=== PATIENT | female | born 1960 | race Caucasian/White ===

== ENCOUNTER 2019-12-15 05:53 | Emergency (ER) | payer OTHER ==
--- OUTSIDE RECORDS SUMMARY | 2019-12-15 06:04 | XMS REPORT | Continuity of Care Document ---
:1960 External Reference #:[id number] Author Name Mandeep Lee MD Address [address] [place] [address] Care Team Providers Name Role Phone Jose Walters MD - Care Team Information Electronics Test Engineer [phone] Otolaryngology Nathaniel Younger MD - Internal Medicine Care Team Information Electronics Test Engineer [phone] Problems Active Problems Provider Date Uncomplicated moderate persistent asthma Mandeep Lee MD Onset: Social History Type Date Description Comments Sex Unknown Tobacco Use Start: Unknown Patient has never smoked Tobacco Use Start: Unknown No Second Hand Smoke Exposure Smoking Status Reviewed: 12/05/19 No Second Hand Smoke Exposure Allergies, Adverse Reactions, Alerts Active Allergies Reaction Severity Comments Date Sulfa Drugs 12/05/2019 Medications Active Medications SIG Qnty Indications Ordering Provider Date Breo Ellipta inhale one puff 60units J45.40 Mandeep Herbert 12/05/2019 once a day MD Jesus 200-25mcg/Inh Aerosol Proair HFA 2 puffs every 4 8.500gm J45.40 Mandeep Herbert 12/05/2019 as needed MD Jesus 108(90Base) mcg/Act Aerosol [employer] REPRESENTATIVE Thyroid Unknown 120mg Tablets Epinephrine Inject as Needed Unknown For Allergic 0.3mg/0.3ML Reaction Solution Auto-Inject Immunizations Description No Information Available Vital Signs Date Vital Result Comment 12/05/2019 1:35pm BP Systolic 118 mmHg BP Diastolic 69 mmHg Height 63.5 inches 5'3.50" Weight 116.38 lb BMI (Body Mass Index) 20.3 kg/m2 Heart Rate 50 /min Respiratory Rate 18 /min Body Temperature 97.2 F O2 % BldC Oximetry 98 % Results Test Acquired Date Facility Test Result H/L Range Note .CBC Auto 12/05/2019 [facility]Other <pending> Diff [address] [facility] [place] [address] [phone] Total IgE 12/05/2019 [facility] .Total IgE <pending> [address] [place] [address] [phone] Order 12/05/2019 [facility] Inhaler <pending> Training-Patient Demonstrates Competency Order 12/05/2019 [facility] Nitric Oxide <pending> PFT Supplies <pending> PFT With Bronchodilator <pending> Procedures Date Code Description Status 12/05/2019 25042 Nitric Oxide Gas Determination Completed 12/05/2019 51581 Demonstration/Eval,Of Patient Utilization Of Completed Aerosol,Nebulizer 12/05/2019 29489 Bronchodilation Responsiveness Spirometry Pre/Post Completed Bronchodil Adm Medical Devices Description No Information Available Encounters Description No Information Available Assessments Date Code Description Provider 12/05/2019 J45.40 Moderate persistent asthma, uncomplicated Mandeep Lee MD Plan of Treatment 12/05/2019 - Mandeep Lee MDJ45.40 Moderate persistent asthma, uncomplicatedNew Medication:Breo Ellipta 200-25 mcg/Inh - inhale one puff once a dayProair HFA 108(90 Base) mcg/Act - 2 puffs every 4 as needed Functional Status Description No Information Available Mental Status Description No Information Available Referrals Description No Information Available
[2019-12-15] MEDS ORDERED: Albuterol/Ipratropium NEB.SOL* Albuterol 2.5 MG/Ipratropium 0.5 MG 3 ML INH ONE (06:23)
--- NOTE | 2019-12-15 06:25 | ED ---
Respiratory - HPI Summary HPI Summary: Pt. is a 59 y.o female who presents to the ER for worsening shortness or breath , cough, and fever. Pt. notes she has been dealing with cough and SOB x 7 days. Pt. notes this morning she had a 104F temp at home. She was started on prednisone on Sunday without improvement. Past hx of hypothyroidism. Sxs are moderate in severity. No current modifying factors. Denies recent surgeries, calf swelling or long travels. - History of Current Complaint Chief Complaint: EDFluSymptoms Stated Complaint: ASTHMA ISSUES PER PT Time Seen by Provider: 12/15/19 06:03 Hx Obtained From: Patient Pain Intensity: 5 - Allergy/Home Medications Allergies/Adverse Reactions: Allergies Allergy/AdvReac Type Severity Reaction Status Date / Time Sulfa (Sulfonamide Allergy Hives Verified 12/15/19 05:58 Antibiotics) Home Medications: Home Medications Benzonatate CAP* [Tessalon 100 MG CAP*] 100 mg PO TID #12 cap 12/15/19 [Rx] DOXYcycline CAP(*) [DOXYcycline 100MG CAP(*)] 100 mg PO BID #20 cap 12/15/19 [Rx ] Fluticasone HFA 110 mcg(NF) [Flovent HFA 110 mcg(NF)] 1 puff INH BID 12/15/19 [ History Confirmed 12/15/19] Thyroid TAB* [Thyroid TAB 120 MG*] 120 mg PO DAILY 12/15/19 [History Confirmed 12/15/19] predniSONE [Prednisone 5 MG TAB] 5 mg PO BID 12/15/19 [History Confirmed ] PMH/Surg Hx/FS Hx/Imm Hx Previously Healthy: Yes Endocrine/Hematology History: Reports: Hx Thyroid Disease Denies: Hx Diabetes Cardiovascular History: Denies: Hx Hypercholesterolemia, Hx Hypertension, Hx Peripheral Vascular Disease Musculoskeletal History: Denies: Hx Arthritis, Hx Rheumatoid Arthritis, Hx Osteoporosis, Hx Scoliosis Sensory History: Denies: Hx Cataracts, Hx Contacts or Glasses, Hx Glaucoma Opthamlomology History: Denies: Hx Cataracts, Hx Contacts or Glasses, Hx Glaucoma Neurological History: Denies: Hx Headaches, Hx Seizures, Hx Transient Ischemic Attacks (TIA), Other Neuro Impairments/Disorders Psychiatric History: Denies: Hx Anxiety, Hx Depression - Immunization History Immunizations Up to Date: Yes Infectious Disease History: No Infectious Disease History: Denies: Traveled Outside the [place] in Last 30 Days - Family History Known Family History: Positive: Non-Contributory - Social History Occupation: Employed Full-time Lives: With Family Alcohol Use: None Hx Substance Use: No Substance Use Type: Reports: None Hx Tobacco Use: No Smoking Status (MU): Never Smoked Tobacco Review of Systems Positive: Fever, Chills Eyes: Negative Cardiovascular: Negative Positive: Shortness Of Breath, Cough Positive: Nausea. Negative: Abdominal Pain, Vomiting, Diarrhea Genitourinary: Negative Skin: Negative Neurological/Mental Status: Negative All Other Systems Reviewed And Are Negative: Yes Physical Exam Triage Information Reviewed: Yes Vital Signs On Initial Exam: Initial Vitals Temp Pulse Resp BP Pulse Ox 98.7 F 74 15 151/92 97 12/15/19 05:56 12/15/19 05:56 12/15/19 05:56 12/15/19 05:56 12/15/19 05:56 Vital Signs Reviewed: Yes Appearance: Positive: Well-Appearing - Pt. sitting up in bed in NAD. Skin: Positive: Warm, Cold Head/Face: Positive: Normal Head/Face Inspection Eyes: Positive: Normal, EOMI, ADEEL ENT: Positive: Pharynx normal Neck: Positive: Supple Respiratory/Lung Sounds: Positive: Other - Diminished breath sounds throughout.. Negative: Stridor, Fatigue Cardiovascular: Positive: Normal, RRR Musculoskeletal: Negative: Edema Left, Edema Right Neurological: Positive: Normal, CN Intact II-III Psychiatric: Positive: Affect/Mood Appropriate Procedures - Sedation Patient Received Moderate/Deep Sedation with Procedure: No Diagnostics - Vital Signs Vital Signs Temp Pulse Resp BP Pulse Ox 12/15/19 05:56 98.7 F 74 15 151/92 97 - Laboratory Lab Statement: Any lab studies that have been ordered have been reviewed, and results considered in the medical decision making process. Disposition - Course Course Of Treatment: Pt. with ongoing cough and SOB. Temp. 102F in ED. O2 saturation 97% on RA which is normal. Diminished breath sounds on exam, will give breathing treatment. Negative flu. CXR shows. Pt. initially declining breathing treatment stating she had one at her PCP office and she feels it made her sxs worse. She did agree to duoneb in ED. On re-auscultation breath sounds have significantly improved to lower lungs. CXR negative for acute findings. Pt. notes old rib fx. Given fever will treat with doxycycline. Pt. ambulatory in ED without SOB. Pt. would like to be discharged. To continue prednisone. Encouraged to use her inhaler 2 puffs every 4-6 hours. Tylenol or motrin for fever as directed. WIll return to er if sxs change or worsen. Pt. understands and agrees with plan. - Differential Dx - Cardiopulmonary Differential Diagnoses - Cardiopulmonary: Asthma, Bronchitis, Influenza, Lower Resp Infection - Diagnoses Provider Diagnoses: Fever, Cough, Bronchospasm Discharge ED - Sign-Out/Discharge Documenting (check all that apply): Patient Departure - Discharge Plan Condition: Improved Disposition: HOME Prescriptions: Benzonatate CAP* [Tessalon 100 MG CAP*] 100 mg PO TID #12 cap DOXYcycline CAP(*) [DOXYcycline 100MG CAP(*)] 100 mg PO BID #20 cap Patient Education Materials: Acute Bronchitis (ED) Referrals: Nathaniel Younger MD [Primary Care Provider] - Additional Instructions: Please see your PCP in 2-3 days for recheck Continue prednisone as directed Take antibiotic as directed Use albuterol inhaler 2 puffs every 4 hours Tylenol or motrin for fever as directed Increase fluids and rest Return to ER if symptoms change or worsen - Billing Disposition and Condition Condition: IMPROVED Disposition: Home - Attestation Statements Provider Attestation: I was available for consult. This patient was seen by the [facility]. The patient was not presented to, seen by, or examined by me. -Ramandeep
[2019-12-15 06:52] LABS: Influenza A Molecular Negative (Negative); Influenza B Molecular Negative (Negative)
[2019-12-15] MEDS ORDERED: Acetaminophen TAB* 325 MG PO ONE (07:03)
[2019-12-15 09:16] VITALS: BP 123/52
== END 2019-12-15 09:24 | disposition home or self-care (01) ==
LOC: ED 05:53
DX: J98.01 Acute bronchospasm (principal); R05 Cough; R50.9 Fever, unspecified; R06.02 Shortness of breath; R11.0 Nausea; E03.9 Hypothyroidism, unspecified
CPT/HCPCS: 71046; 99284; A9270-GY